=== PATIENT | male | born 1950 | race African-American/Black ===

== ENCOUNTER → 2019-08-11 | Day surgery (SDC) | payer OTHER ==
[2019-08-03 14:20] LABS: BASOPHILS % 0.2 % (0.0-1.0); EOSINOPHILS # (AUTO) 0.1 (0.0-0.4); EOSINOPHILS % 2.8 % (0.0-6.0); HEMATOCRIT 46.6 % (38.2-49.6); HEMOGLOBIN 15.2 g/dL (14.0-18.0); LYMPHOCYTES # (AUTO) 1.2 (1.0-3.2); LYMPHOCYTES % 24.2 % (18.0-39.1); MEAN CORPUSCULAR HEMOGLOBIN 28.6 pg (28-32); MEAN CORPUSCULAR HGB CONC 32.6 g/dL (31-35); MEAN CORPUSCULAR VOLUME 87.6 fL (81-99); MONOCYTES # (AUTO) 0.3 (0.2-0.8); MONOCYTES % 6.7 % (4.4-11.3); NEUTROPHILS # (AUTO) 3.2 (2.1-6.9); NEUTROPHILS % 65.7 % (38.7-80.0); PLATELET COUNT 156 x10e3/uL (140-360); RED BLOOD COUNT 5.32 x10e6/uL (4.3-5.7); RED CELL DISTRIBUTION WIDTH 15.4 % (11.7-14.4)
--- NOTE | 2019-08-03 15:36 | Diagnostic Imaging Report ---
Chest, 2 views, 08/03/2019. History: Preop, hardware removal. Comparison: None available. Findings: The cardiomediastinal silhouette and pulmonary vasculature are within normal limits. The lungs are clear without evidence of consolidation or pleural effusion. Prominence right epicardial fat-pad is noted. There are no acute osseous or soft tissue abnormalities. Impression: No acute cardiopulmonary abnormality. Signed by: Sukhi Bustamante on 08/03/2019 3:33 PM
[~2019-08-11] MED LIST: ACETAMINOPHEN/CODEINE 300MG - 30MG TAB ONE; AMBIEN10 MG PO; AMLODIPINE PO; BUPIVACAINE HCL 0.5% INJ 30 ML VIAL INJ ONE; CEFAZOLIN SOD 1 GM/NS 50ML 50 ML IV ONE; CELEBREX PO; CIALIS5 MG PO; CRESTOR10 MG PO; EPHEDRINE SULFATE INJ 50 MG/10 ML SYR ONE; FENTANYL CITRATE/PF 100MCG/2 ML INJ ONE; HYZAAR 50-12.51 EACH PO; LIDOCAINE HCL 2% LOCAL INJ 5 ML SDV VIAL INJ ONE; OLMESARTAN PO; PROPOFOL IV EMULSION 10 MG/ML 20 ML VIAL ONE; SEVOFLURANE INHAL SOLN 250 ML PEN BTL ONE
--- OUTSIDE RECORDS SUMMARY | 2019-08-11 05:57 | XMS REPORT ---
Author Author [facility] Address Unknown Phone Unavailable Care Team Providers Care Ux Design Manager Name Role Phone ILENE MADRID Unavailable Unavailable NUNO ZUNIGA Unavailable Unavailable Payers Payer Name Policy Type Policy Number Effective Date Expiration Date Problems This patient has no known problems. Allergies, Adverse Reactions, Alerts Allergy Name Allergy Type Status Severity Reaction(s) Onset Date Inactive Date Treating Clinician Comments No Known Allergies DA Active U 2015-03-20 00:00:00 Medications This patient has no known medications. Encounters Start Date/Time End Date/Time Encounter Type Admission Type Attending [facility] Facility Care Department Encounter ID 2017-04-09 20:00:00 2017-04-09 23:59:00 Outpatient [facility] [id number] Results Test Description Test Time Test Comments Text Results Atomic Results Result Comments CHEST 2 VIEWS 2019 15:32:00 [place] [address] Patient Name: BRYN LOWE MR #: [id number] : 1950 Age/Sex: 69/M Req #: [id number] Adm Physician: Ordered by: ILENE MADRID MD Report #: [id number] Location: OR Room/Bed: Procedure: [id number] DX/CHEST 2 VIEWS Exam Date: 08/03/19 Exam Time: 1431 REPORT STATUS: Signed Chest, 2 views, 2019. History: Preop, hardw are removal. Comparison: None available. Findings: The cardiomediastinal silhouette and pulmonary vasculature are within normal limits. The lungs are clear without evidence of consolidation or pleural effusion. Prominence right epicardial fat-pad is noted. There are no acute osseous or soft tissue abnormalities. Impression: No acute cardiopulmonary abnormality. Signed by: Sukhi Bustamante on 2019 3:33 PM Dictated By: SUKHI BUSTAMANTE MD 153 Transcribed By: ABRAHAM on 08/03/19 1533 COPY TO: ILENE MADRID MD U/S, THYROID 2019-05-22 13:57:00 Reason for Exam:->e04.1 FINAL REPORT TECHNIQUE: Grayscale ultrasound of the thyroid. INDICATION: e04.1. Thyroid nodule COMPARISON: None. FINDINGS: Right thyroid:The right thyroid measures 4 x 1.6 x 2.2 cm.A right mid thyroid mixed cystic and solid hypoechoic nodule measures 1.7 x 1.5 x 1.6 cm with a smooth margin. TI-RADS 3A mixed cystic and solid thyroid nodule in the upper thyroid measures 0.6 x 0.4 x 0.4 cm.No right-sided lymphadenopathy. Left thyroid:The left thyroid measures 3.9 x 1.4 x 1.3 cm.No discrete nodules.No left-sided lymphadenopathy. Isthmus:The isthmus measures 0.3 cm in thickness.No discrete nodules. IMPRESSION: A right thyroid nodule measures 1.7 cm and qualifies as TI-RADS 3. A follow-up ultrasound is recommended in one year to document stability. Signed: Dusty Cosby MDReport Verified Date/Time: 05/22/2019 13:57:14 Reading Location: [address] Radiology Reading Room Abdomen Complete 2019-01-12 10:23:14 Patient: BRYN LOWE Date/Time01/12/2019 10:01 CDTReason for ExamIncontinenceReportUltrasound abdomen completeHISTORY: Nausea, vomiting, diarrhea, abdominal painCOMPARISON: 08/05/2015TECHNIQUE: Real-time sonographic images of the abdomen acquired.FINDINGS: Liver size within normal limits. Hepatic portal triads are preserved. 4.1 cm cyst is seen in the right lobe the liver. Nonshadowing 11 mm hyperechoic lesion is also seen within the dome of the right lobe. Gallbladder is contracted without shadowing stone. Common bile duct measures 4.5 mm. Pancreas obscured by overlying bowel gas. Spleen measures 10.9 cm with suspected 19 mm splenule. Increased cortical echogenicity of the kidneys identified with right kidney measuring 10.1 cm in length the left kidney measuring 13.0 cm. 2.0 cm cyst present within the right kidney. No hydronephrosis. Abdominal aorta and IVC largely obscured by overlying bowel gas. No free fluid.IMPRESSION:1. Increased cortical echogenicity bilateral kidneys suspect for nonspecific medical renal disease.2. Hepatic and renal cysts.3. No shadowing 11 mm hyperechoic lesion dome of the right lobe of the liver. Although nonspecific, small hemangioma is of differential consideration. Final Dictated by: MD Gely, Hallie DT/TM: 01/12/2019 10:19 amSigned by: MD Gely, Nemesio (Electronic Signature): 01/12/2019 10:23 am XR Abdomen Series + Chest 1 View 2019-01-12 08:47:26 Patient: BRYN LOWE Date/Time01/12/2019 08:42 CDTReason for ExamBowel obstructionReportAbdominal series with chest x- rayHISTORY: Diarrhea, emesis, hypertensionCOMPARISON: 08/05/2015TECHNIQUE: PA chest provided along with supine and upright views of the abdomenFINDINGS: Heart size and pulmonary vasculature within normal limits. Basilar crowd ing/atelectasis suspected. No acute pleural abnormality. No free air present underlying the hemidiaphragms. Nonobstructive bowel gas pattern noted. Limited air-fluid levels present in the colon. Psoas margins profiled. Degenerative changes of the spine noted.IMPRESSION:1. No active cardiopulmonary process.2. Nonspecific colonic air-fluid levels. Final Dictated by: MD Gely, Trudyctated DT/TM: 01/12/2019 8:45 amSigned by: MD Gely, Nemesio (Electronic Signature): 01/12/2019 8:47 am - XR CHEST 2 V 2018-12-22 16:44:00 FAX: Armando Cates II [phone] [place]: St: REG Name: BRYN LOWE [facility] : 1950 Age/S: 68/M [address] [place] [address] Unit #: [id number] Loc: [place] [address] Phys: Armando Ctaes II, MD Acct: [id number] Dis Date: Status: REG CLI PHONE #: [phone] Exam Date: 12/22/2018 1630 FAX #: [phone] Reason: J40, BRONCHITIS. EXAMS: CPT CODE: [id number] XR CHEST 2 V [id number] EXAM: CHEST TWO VIEW HISTORY: 68-year-old male with bronchitis COMPARISON: Chest radiograph 11/30/2015 FINDINGS: Minimal sub segmental atelectasis in the left lung base. Lungs otherwise clear. The cardiomediastinal silhouette is normal for projection. No acute osseous abnormality. IMPRESSION: 1. Minimal subsegmental atelectasis in the left lung base. SL: [id number] at 9038 Reported and signed by: Martha Luevano M.D. CC: ARMANDO CATES Technologist: RT Chidi(Shelia) Trnscrd Date/Time/By: 12/22/2018 (1797) : By: [email or web address] Orig Print D/T: S: 12/22/2018 (4151) PAGE 1 Signed Report
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
--- NOTE | 2019-08-11 07:05 | NUR ---
SPIRITUAL CARE - Pre-Surgery Assessment: Pt in bed. Pt's at bedside. Pt reported supportive attention from family and friends. Intervention: I provided pastoral presence, hospitality, and sympathetic listening. I acquainted pt with availability of cooking chef while hospitalized. Outcome: Pt expressed appreciation for visit. No need for follow up indicated at this time. MALORIE Juarezlain Spiritual Care Department O: [phone] Pager: [phone] ([phone] number calling from)
[2019-08-11 09:55] VITALS: BP 137/84
--- NOTE | 2019-08-11 12:28 | Operative Report ---
DATE OF PROCEDURE: 08/11/2019 SURGEON: Donal Lamar MD FORMAL WEAR RENTAL CLERK: Gil Almonte, certified PA. PREOPERATIVE DIAGNOSIS: Mechanical complication, left ankle hardware. POSTOPERATIVE DIAGNOSIS: Mechanical complication, left ankle hardware. PROCEDURE: Hardware removal, left ankle. INDICATIONS: The patient is a 69-year-old gentleman, who is status post an ORIF of his left ankle. The fracture has gone on to heal. The swelling has subsided and now the hardware is bothering him on the lateral aspect of his ankle. The findings and options have been discussed. He would like to proceed with hardware removal. The risks and benefits were explained. He stated he understood and wished to proceed. PROCEDURE IN DETAIL: The patient was brought to the operating room and placed under general anesthetic. His left lower extremity was prepped and draped in a sterile manner. A preoperative time-out was performed. The extremity was exsanguinated and a proximal tourniquet was inflated to 300 mmHg. A portion of the previous lateral incision was utilized. The plate was carefully identified and an electrocauterized was used to remove the soft tissue off the plate. The screws were all carefully removed. The plate was removed. Each drill hole was gently debrided with a curette and a rongeur forceps. The thickened periosteum was closed over the fracture. The skin was closed with subcuticular Vicryl and a running nylon stitch. About 6 mL of 0.5% Marcaine without epinephrine was injected around the incision. He was placed into a sterile bandage, extubated and transported to the recovery room in stable condition. There was no blood loss and all needle and sponge counts were correct. Donal Lamar MD DR/BOGDAN /[id number]
== END | disposition home or self-care (01) ==
LOC: OR 05:48
PROVIDERS: ATTEND Specialist
DX: T84.197A Other mechanical complication of internal fixation device of bone of left lower leg, initial encounter (principal); I10 Essential (primary) hypertension; E78.5 Hyperlipidemia, unspecified; G47.33 Obstructive sleep apnea (adult) (pediatric); N20.0 Calculus of kidney; Y83.8 Other surgical procedures as the cause of abnormal reaction of the patient, or of later complication, without mention of misadventure at the time of the procedure; Z01.810 Encounter for preprocedural cardiovascular examination; Z01.812 Encounter for preprocedural laboratory examination; Z01.818 Encounter for other preprocedural examination; Z68.32 Body mass index [BMI] 32.0-32.9, adult; Z85.46 Personal history of malignant neoplasm of prostate
CPT/HCPCS: 20680; 36415; 71046; 76000; 85025; 93005; J0690; J2001; J2704; J3010

== ENCOUNTER 2020-05-20 22:57 | Observation (INO) | payer OTHER ==
[~2020-05-20] VITALS: Ht 170.2 cm; Wt 95.8 kg
[~2020-05-20 22:57] MED LIST changes: -ACETAMINOPHEN/CODEINE 300MG - 30MG TAB ONE; -BUPIVACAINE HCL 0.5% INJ 30 ML VIAL INJ ONE; -CEFAZOLIN SOD 1 GM/NS 50ML 50 ML IV ONE; -EPHEDRINE SULFATE INJ 50 MG/10 ML SYR ONE; -FENTANYL CITRATE/PF 100MCG/2 ML INJ ONE; -LIDOCAINE HCL 2% LOCAL INJ 5 ML SDV VIAL INJ ONE; -PROPOFOL IV EMULSION 10 MG/ML 20 ML VIAL ONE; -SEVOFLURANE INHAL SOLN 250 ML PEN BTL ONE
[2020-05-20] MEDS ORDERED: ASPIRIN 81 MG CHEW TAB PO ONE (23:15)
[2020-05-20 23:21] LABS: BASOPHILS % 0.5 % (0.0-1.0); EOSINOPHILS # (AUTO) 0.2 (0.0-0.4); EOSINOPHILS % 2.6 % (0.0-6.0); HEMATOCRIT 45.8 % (38.2-49.6); LYMPHOCYTES # (AUTO) 1.4 (1.0-3.2); LYMPHOCYTES % 23.3 % (18.0-39.1); MEAN CORPUSCULAR HEMOGLOBIN 28.1 pg (28-32); MEAN CORPUSCULAR HGB CONC 32.8 g/dL (31-35); MEAN CORPUSCULAR VOLUME 85.8 fL (81-99); MONOCYTES # (AUTO) 0.6 (0.2-0.8); NEUTROPHILS # (AUTO) 3.9 (2.1-6.9); NEUTROPHILS % 64.4 % (38.7-80.0); PLATELET COUNT 179 x10e3/uL (140-360); RED BLOOD COUNT 5.34 x10e6/uL (4.3-5.7); RED CELL DISTRIBUTION WIDTH 14.9 % (11.7-14.4)
[2020-05-20 23:26] LABS: INR 0.86; PROTHROMBIN TIME 12.1 seconds (11.9-14.5)
[2020-05-20 23:27] LABS: PARTIAL THROMBOPLASTIN TIME 23.9 seconds (23.8-35.5)
[2020-05-20 23:36] LABS: ALBUMIN 3.9 g/dL (3.5-5.0); ALBUMIN/GLOBULIN RATIO 1.1 (0.8-2.0); CALCIUM 9.1 mg/dL (8.4-10.2); CREATININE, SERUM 1.51 mg/dL (0.72-1.25)
[2020-05-20 23:42] LABS: CREATINE KINASE MB 1.4 ng/mL (0-5.0)
--- OUTSIDE RECORDS SUMMARY | 2020-05-20 23:59 | XMS REPORT | Clinical Summary ---
Author Author [facility] Address Unknown Phone Unavailable Care Team Providers Care Trade Facilitator Name Role Phone Armando Cates PCP Allergies Not on File Medications Not on file Active Problems Not on file Encounters Care Team Description Date Type Specialty Sky Avilez MD Nontoxic uninodular goiter 05/22/2019 Hospital Radiology Encounter Sky Avilez MD Nontoxic uninodular goiter (Primary Dx) 05/22/2019 Outside Orders Central Scheduling after 05/20/2019 Social History Date Tobacco Use Types Packs/Day Years Used Never Assessed Sex Assigned at Date Recorded Not on file Industry Job Start Date Occupation Not on file Not on file Not on file Travel End Travel History Travel Start No recent travel history available. Last Filed Vital Signs Not on file Plan of Treatment Not on file Procedures Comments Procedure Name Priority Date/Time Associated Diag nosis US THYROID Routine 05/22/2019 Nontoxic uninod ular 12:18 PM CDT goiter after 05/20/2019 Results * US Thyroid (05/22/2019 12:18 PM CDT) Specimen Narrative Performed At FINAL REPORT [facility] TECHNIQUE: Grayscale ultrasound of the thyroid. INDICATION: e04.1. Thyroid nodule COMPARISON: None. FINDINGS: Right thyroid: The right thyroid measures 4 x 1.6 x 2. 2 cm. A right mid thyroid mixed cystic and so lid hypoechoic nodule measures 1.7 x 1.5 x 1.6 cm with a smooth margin . TI-RADS 3 A mixed cystic and solid thyroid nodule in the upper thyroid measures 0.6 x 0.4 x 0.4 cm. No right-sided lymphadenopathy. Left thyroid: The left thyroid measures 3.9 x 1.4 x 1 .3 cm. No discrete nodules. No left-sided lymphadenopathy. Isthmus: The isthmus measures 0.3 cm in thicknes s. No discrete nodules. IMPRESSION: A right thyroid nodule measures 1.7 cm and qualifies as TI-RADS 3. A follow-up ultrasound is recommended in one year to document stability. Signed: Dusty Cosby MD Report Verified Date/Time: 13:57:14 Reading Location: [address] Radiolo gy Reading Room Procedure Note Interface, External Ris In - 05/22/2019 1:59 PM CDT FINAL REPORT TECHNIQUE: Grayscale ultrasound of the thyroid. INDICATION: e04.1. Thyroid nodule COMPARISON: None. FINDINGS: Right thyroid: The right thyroid measures 4 x 1.6 x 2.2 cm. A right mid thyroid mixed cystic and solid hypoechoic nodule measures 1.7 x 1.5 x 1.6 cm with a smooth margin. TI-RADS 3 A mixed cystic and solid thyroid nodule in the upper thyroid measures 0.6 x 0.4 x 0.4 cm. No right-sided lymphadenopathy. Left thyroid: The left thyroid measures 3.9 x 1.4 x 1.3 cm. No discrete nodules. No left-sided lymphadenopathy. Isthmus: The isthmus measures 0.3 cm in thickness. No discrete nodules. IMPRESSION: A right thyroid nodule measures 1.7 cm and qualifies as TI-RADS 3. A follow-up ultrasound is recommended in one year to document stability. Signed: Dusty Cosby MD Report Verified Date/Time: 05/22/2019 13:57:14 Reading Location: [address] Radiology Reading Room Performing Organization Address City/State/Zipcode Ph one Number GE RIS after 05/20/2019 Insurance Payer Benefit Subscriber ID Type Phone Address Plan / Group CP [facility] x[facility] [place] [facility] [id number]
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
--- NOTE | 2020-05-21 00:01 | Emergency Department Note ---
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 Historian: Patient Arrival Mode: Car Section Chief Required: No Onset (how long ago): hour(s) (1) Location: SUBSTERANL Quality: PAIN Radiation: Reports non-radiation, Reports extremity, Reports other (NECK) Severity: moderate Onset quality: sudden Duration (how long): hour(s) (1) Timing of current episode: intermittent Progression: partially resolved Chronicity: new Context: Denies recent illness, Denies recent surgery, Denies trauma/injury Relieving factors: none Exacerbating factors: none Associated symptoms: Reports denies other symptoms Treatments prior to arrival: none Past Medical/Family History Physician Review I have reviewed the patient's past medical and family history. Any updates have been documented here. Past Medical History Recent Fever: No Clinical Suspicion of Infectio: No New/Unexplained Change in Ment: No Past Medical History: Hypertension, GERD, Hyperlipedemia Past Surgical History: T&A Other Surgery: LT WRIST LT ANKLE Social History Smoking Cessation: Never Smoker Alcohol Use: None Any Illegal Drug Use: No Physically hurt or threatened: No Family History Family history of heart diseas: No Other family history HTN Review of Systems Review of Systems Constitutional: Reports no symptoms EENTM: Reports no symptoms Cardiovascular: Reports as per HPI Respiratory: Reports no symptoms Gastrointestinal: Reports no symptoms Genitourinary: Reports no symptoms Musculoskeletal: Reports no symptoms Integumentary: Reports no symptoms Neurological: Reports no symptoms Psychological: Reports no symptoms Endocrine: Reports no symptoms Hematological/Lymphatic: Reports no symptoms Physical Exam Related Data Allergies: Coded Allergies: No Known Allergies (Unverified , 03/21/15) Triage Vital Signs Vital Signs Date Time Temp Pulse Resp B/P (MAP) Pulse Ox O2 Delivery O2 Flow Rate FiO2 05/20/20 22:57 97.9 90 18 145/83 100 Room Air Vital signs reviewed: Yes Physical Exam CONSTITUTIONAL Constitutional: Present well-developed, Present well-nourished; Absent distressed HENT HENT: Present normocephalic, Present atraumatic, Present oropharynx clear/moist, Present nose normal HENT L/R: Present left ext ear normal, Present right ext ear normal EYES Eyes: Reports PERRL, Reports conjunctivae normal NECK Neck: Present ROM normal PULMONARY Pulmonary: Present effort normal, Present breath sounds normal CARDIOVASCULAR Cardiovascular: Present regular rhythm, Present heart sounds normal, Present capillary refill normal, Present normal rate GASTROINTESTINAL Abdominal: Present soft, Present nontender, Present bowel sounds normal GENITOURINARY Genitourinary: Present exam deferred SKIN Skin: Present warm, Present dry MUSCULOSKELETAL Musculoskeletal: Present ROM normal NEUROLOGICAL Neurological: Present alert, Present oriented x 3, Present no gross motor or sensory deficits PSYCHOLOGICAL Psychological: Present mood/affect normal, Present judgement normal Results Laboratory Result Diagram: 05/20/20230805/20/202308 Laboratory Laboratory Tests Test 05/20/20 23:09 White Blood Count 6.10 x10e3/uL (4.8-10.8) Red Blood Count 5.34 x10e6/uL (4.3-5.7) Hemoglobin 15.0 g/dL (14.0-18.0) Hematocrit 45.8 % (38.2-49.6) Mean Corpuscular Volume 85.8 fL (81-99) Mean Corpuscular Hemoglobin 28.1 pg (28-32) Mean Corpuscular Hemoglobin Concent 32.8 g/dL (31-35) Red Cell Distribution Width 14.9 % (11.7-14.4) Platelet Count 179 x10e3/uL (140-360) Neutrophils (%) (Auto) 64.4 % (38.7-80.0) Lymphocytes (%) (Auto) 23.3 % (18.0-39.1) Monocytes (%) (Auto) 9.0 % (4.4-11.3) Eosinophils (%) (Auto) 2.6 % (0.0-6.0) Basophils (%) (Auto) 0.5 % (0.0-1.0) Neutrophils # (Auto) 3.9 (2.1-6.9) Lymphocytes # (Auto) 1.4 (1.0-3.2) Monocytes # (Auto) 0.6 (0.2-0.8) Eosinophils # (Auto) 0.2 (0.0-0.4) Basophils # (Auto) 0.0 (0.0-0.1) Absolute Immature Granulocyte (auto 0.01 x10e3/uL (0-0.1) Prothrombin Time 12.1 seconds (11.9-14.5) Prothromb Time International Ratio 0.86 Activated Partial Thromboplast Time 23.9 seconds (23.8-35.5) Sodium Level 141 mmol/L (136-145) Potassium Level 4.0 mmol/L (3.5-5.1) Chloride Level 109 mmol/L (98-107) Carbon Dioxide Level 19 mmol/L (22-29) Anion Gap 17.0 mmol/L (8-16) Blood Urea Nitrogen 19 mg/dL (7-26) Creatinine 1.51 mg/dL (0.72-1.25) Estimat Glomerular Filtration Rate 56 ML/MIN (60-) BUN/Creatinine Ratio 13 (6-25) Glucose Level 141 mg/dL (74-118) Calcium Level 9.1 mg/dL (8.4-10.2) Total Bilirubin 0.8 mg/dL (0.2-1.2) Aspartate Amino Transf (AST/SGOT) 16 IU/L (5-34) Alanine Aminotransferase (ALT/SGPT) 19 IU/L (0-55) Alkaline Phosphatase 62 IU/L (40-150) Creatine Kinase 263 IU/L (30-200) Creatine Kinase MB 1.40 ng/mL (0-5.0) Troponin I 0.009 ng/mL (0-0.300) B-Type Natriuretic Peptide < 10.0 pg/mL (0-100) Total Protein 7.4 g/dL (6.5-8.1) Albumin 3.9 g/dL (3.5-5.0) Globulin 3.5 g/dL (2.3-3.5) Albumin/Globulin Ratio 1.1 (0.8-2.0) Lipase 105 U/L (8-78) Laboratory Tests Test 05/20/20 23:09 White Blood Count 6.10 x10e3/uL (4.8-10.8) Red Blood Count 5.34 x10e6/uL (4.3-5.7) Hemoglobin 15.0 g/dL (14.0-18.0) Hematocrit 45.8 % (38.2-49.6) Mean Corpuscular Volume 85.8 fL (81-99) Mean Corpuscular Hemoglobin 28.1 pg (28-32) Mean Corpuscular Hemoglobin Concent 32.8 g/dL (31-35) Red Cell Distribution Width 14.9 % (11.7-14.4) Platelet Count 179 x10e3/uL (140-360) Neutrophils (%) (Auto) 64.4 % (38.7-80.0) Lymphocytes (%) (Auto) 23.3 % (18.0-39.1) Monocytes (%) (Auto) 9.0 % (4.4-11.3) Eosinophils (%) (Auto) 2.6 % (0.0-6.0) Basophils (%) (Auto) 0.5 % (0.0-1.0) Neutrophils # (Auto) 3.9 (2.1-6.9) Lymphocytes # (Auto) 1.4 (1.0-3.2) Monocytes # (Auto) 0.6 (0.2-0.8) Eosinophils # (Auto) 0.2 (0.0-0.4) Basophils # (Auto) 0.0 (0.0-0.1) Absolute Immature Granulocyte (auto 0.01 x10e3/uL (0-0.1) Prothrombin Time 12.1 seconds (11.9-14.5) Prothromb Time International Ratio 0.86 Activated Partial Thromboplast Time 23.9 seconds (23.8-35.5) Sodium Level 141 mmol/L (136-145) Potassium Level 4.0 mmol/L (3.5-5.1) Chloride Level 109 mmol/L (98-107) Carbon Dioxide Level 19 mmol/L (22-29) Anion Gap 17.0 mmol/L (8-16) Blood Urea Nitrogen 19 mg/dL (7-26) Creatinine 1.51 mg/dL (0.72-1.25) Estimat Glomerular Filtration Rate 56 ML/MIN (60-) BUN/Creatinine Ratio 13 (6-25) Glucose Level 141 mg/dL (74-118) Calcium Level 9.1 mg/dL (8.4-10.2) Total Bilirubin 0.8 mg/dL (0.2-1.2) Aspartate Amino Transf (AST/SGOT) 16 IU/L (5-34) Alanine Aminotransferase (ALT/SGPT) 19 IU/L (0-55) Alkaline Phosphatase 62 IU/L (40-150) Creatine Kinase 263 IU/L (30-200) Creatine Kinase MB 1.40 ng/mL (0-5.0) Troponin I 0.009 ng/mL (0-0.300) B-Type Natriuretic Peptide < 10.0 pg/mL (0-100) Total Protein 7.4 g/dL (6.5-8.1) Albumin 3.9 g/dL (3.5-5.0) Globulin 3.5 g/dL (2.3-3.5) Albumin/Globulin Ratio 1.1 (0.8-2.0) Lipase 105 U/L (8-78) Lab results reviewed: Yes Imaging Imaging results reviewed: Yes Impressions EXAMINATION: CHEST SINGLE (PORTABLE) INDICATION: CHEST PAIN COMPARISON: Radiograph dated 08/03/2019. FINDINGS: TUBES and LINES: None. LUNGS: Shallow lung volumes. Strandy right basilar atelectasis. PLEURA: No pleural effusion or pneumothorax. HEART AND MEDIASTINUM: The cardiomediastinal silhouette is unremarkable. BONES AND SOFT TISSUES: No acute osseous lesion. Soft tissues are unremarkable. UPPER ABDOMEN: No free air under the diaphragm. IMPRESSION: Shallow lung volumes mildly limits examination. Strandy bibasilar atelectasis. No acute process identified. Signed by: Snow Wyman MD on 05/21/2020 12:08 AM Dictated By: SNOW WYMAN MD Transcribed By: ABRAHAM on 05/21/207 COPY TO: GEMMA BELTRAN MD~ Procedures 12 Lead ECG Interpretation ECG Interpretation : ECG: ECG 1 Section Chief: Interpreted by ED physician Date: May 20, 2020 Time: 23:00 Rhythm: sinus rhythm Rate: normal BPM: 88 QRS axis: normal ST segments normal: Yes T wave inversion: III, V1, V3, V4 Other findings: LVH Clinical Impression: abnormal ECG Assessment & Plan Medical Decision Making MDM Patient with intermittent chest pain for the past hour with the longest episode lasting 20 minutes. Maximum nonattention currently 3 out of 10 this is still improving CBC, CMP, cardiac enzymes, EKG, chest x-ray, BNP ordered to eval for myocardial infarction, pneumonia, pulmonary edema, congestive heart failure, a little light abnormality, renal insufficiency. 81 mg aspirin by mouth ordered Assessment & Plan Final Impression: (1) Chest pain (2) Elevated lipase Depart Disposition: ADMITTED Last Vital Signs Date Time Temp Pulse Resp B/P (MAP) Pulse Ox O2 Delivery O2 Flow Rate FiO2 05/20/20 22:57 97.9 90 18 145/83 100 Room Air Home Meds Reported Medications Tadalafil (CIALIS) 5 Mg Tablet, 5 MG PO DAILY 08/03/19 Rosuvastatin Calcium (CRESTOR) 10 Mg Tab, 20 MG PO DAILY THERAPEUTICALLY SUBSTITUTED WITH SIMVASTATIN 40MG 08/03/19 [Amlodipine/Olmesar] No Conflict Check, MG PO DAILY 08/03/19 Zolpidem Tartrate (AMBIEN) 10 Mg Tablet, 10 MG PO PRN 03/21/15 Medications in the ED Aspirin 81 mg PRN ONCE PO Last administered on 05/20/20at 23:39; Admin Dose 81 MG; Start 05/20/20 at 23:15; Stop 05/20/20 at 23:25; Status DC GEMMA BELTRAN MD May 21, 2020 00:01
--- NOTE | 2020-05-21 00:11 | Diagnostic Imaging Report ---
EXAMINATION: CHEST SINGLE (PORTABLE) INDICATION: CHEST PAIN COMPARISON: Radiograph dated 08/03/2019. FINDINGS: TUBES and LINES: None. LUNGS: Shallow lung volumes. Strandy right basilar atelectasis. PLEURA: No pleural effusion or pneumothorax. HEART AND MEDIASTINUM: The cardiomediastinal silhouette is unremarkable. BONES AND SOFT TISSUES: No acute osseous lesion. Soft tissues are unremarkable. UPPER ABDOMEN: No free air under the diaphragm. IMPRESSION: Shallow lung volumes mildly limits examination. Strandy bibasilar atelectasis. No acute process identified. Signed by: Gera Borges MD on 05/21/2020 12:08 AM
[2020-05-21] MEDS ORDERED: SODIUM CHLORIDE FLUSH 10 ML SYR INJ PRN (00:15)
[2020-05-21] MEDS ORDERED: FAMOTIDINE 20 MG/2 ML VIAL IV SCH (00:15)
[2020-05-21] MEDS ORDERED: ONDANSETRON HCL INJ 2MG/ML 2ML 2 MG/ML VIAL IV PRN (00:15)
[2020-05-21] MEDS ORDERED: MORPHINE SULFATE 2 MG/ML SYR 1ML IV PRN (00:15)
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
--- OUTSIDE RECORDS SUMMARY | 2020-05-21 00:18 | XMS REPORT | Clinical Summary ---
Author Author [facility] Address Unknown Phone Unavailable Care Team Providers Care Room Service Associate Name Role Phone Armando Cates PCP Allergies Not on File Medications Not on file Active Problems Not on file Encounters Care Team Description Date Type Specialty Sky Avilez MD Nontoxic uninodular goiter 05/22/2019 Hospital Radiology Encounter Sky Avilez MD Nontoxic uninodular goiter (Primary Dx) 05/22/2019 Outside Orders Central Scheduling after 05/21/2019 Social History Date Tobacco Use Types Packs/Day [...] uninod ular 12:18 PM CDT goiter after 05/21/2019 Results * US Thyroid (05/22/2019 12:18 PM CDT) Specimen Narrative Performed At FINAL REPORT [facility] TECHNIQUE: Grayscale ultrasound of the thyroid. INDICATION: [...] MD Report Verified Date/Time: 13:57:14 Reading Location: [address] Radiolo gy Reading Room Procedure Note [...] Report Verified Date/Time: 05/22/2019 13:57:14 Reading Location: [address] Radiology Reading Room Performing Organization Address City/State/Zipcode Ph one Number GE RIS after 05/21/2019 Insurance Payer Benefit Subscriber ID Type Phone Address Plan / Group CP [facility] x[facility] [place] [facility] [id number]
[2020-05-21 02:12] VITALS: BP 122/81
[2020-05-21 02:40] VITALS: BP 122/81
--- NOTE | 2020-05-21 02:45 | NUR ---
Patient received from ER. AAO x 4. Patient had no complaints of chest pain. Respirations even and non-labored. Telemetry box in place; recording SR @ 88. Safety measures implemented. Patient oriented to room, call light, visiting policy and plan of care. Patient instructed to call for assistance when needed. Call light within reach.
[2020-05-21] MEDS ORDERED: AZOR 10-20 MG1 EACH (02:58)
[2020-05-21] MEDS ORDERED: METFORMIN HCL500 MG PO (02:58)
[2020-05-21] MEDS ORDERED: CELEBREX100 MG PO (02:58)
[2020-05-21 04:58] VITALS: BP 136/87
--- NOTE | 2020-05-21 06:37 | NUR ---
RECEIVED BEDSIDE SHIFT REPORT FROM OFF GOING NURSE. PATIENT IS RESTING IN BED, DENIES PAIN OR DISCOMFORT. NO ACUTE DISTRESS NOTED. CALL LIGHT WITHIN REACH. BED IN THE LOWEST POSITION.
[2020-05-21 07:22] LABS: BASOPHILS % 0.6 % (0.0-1.0); EOSINOPHILS # (AUTO) 0.2 (0.0-0.4); EOSINOPHILS % 2.8 % (0.0-6.0); HEMOGLOBIN 14.4 g/dL (14.0-18.0); LYMPHOCYTES # (AUTO) 1.5 (1.0-3.2); LYMPHOCYTES % 27.4 % (18.0-39.1); MEAN CORPUSCULAR HEMOGLOBIN 28.3 pg (28-32); MEAN CORPUSCULAR HGB CONC 32.7 g/dL (31-35); MEAN CORPUSCULAR VOLUME 86.4 fL (81-99); MONOCYTES # (AUTO) 0.5 (0.2-0.8); MONOCYTES % 9.6 % (4.4-11.3); NEUTROPHILS # (AUTO) 3.1 (2.1-6.9); NEUTROPHILS % 59.2 % (38.7-80.0); PLATELET COUNT 158 x10e3/uL (140-360); RED BLOOD COUNT 5.09 x10e6/uL (4.3-5.7)
[2020-05-21 07:42] LABS: ALANINE AMINOTRANSFERASE 17 IU/L (0-55); ALBUMIN 3.6 g/dL (3.5-5.0); ALBUMIN/GLOBULIN RATIO 1.1 (0.8-2.0); ALKALINE PHOSPHATASE 55 IU/L (40-150); ANION GAP 14.1 mmol/L (8-16); BLOOD UREA NITROGEN 16 mg/dL (7-26); BUN/CREATININE RATIO 12 (6-25); CARBON DIOXIDE 22 mmol/L (22-29); CHLORIDE 110 mmol/L (98-107); CREATININE, SERUM 1.39 mg/dL (0.72-1.25); EST GLOMERULAR FILTRATION RATE > 60 ML/MIN (60-); GLUCOSE 105 mg/dL (74-118); POTASSIUM 4.1 mmol/L (3.5-5.1); SODIUM 142 mmol/L (136-145)
[2020-05-21 07:45] LABS: CREATINE KINASE 207 IU/L (30-200)
[2020-05-21 08:00] VITALS: BP 121/78
[2020-05-21 08:06] VITALS: BP 121/78
[2020-05-21] MEDS ORDERED: ASPIRIN 81 MG ENTERIC COATED PO SCH (09:00)
[2020-05-21 12:00] VITALS: BP 125/95
--- NOTE | 2020-05-21 12:11 | NUR ---
RECEIVED DISCHARGE ORDER FROM DR. SCOTT, PATIENT IS IN STABLE CONDITION. IV LINE TO RIGHT ANTECUBITAL DISCONTINUED @ 1200 WITH TIP INTACT, PRESSURE DRESSING APPLIED TO SITE. DISCHARGE TEACHING PROVIDED TO PATIENT, HE VERBALIZED UNDERSTANDING. NO NEW PRESCRIPTIONS ORDERED. TRANSITION OF CARE FOLDER WITH DC PAPERWORK AND PERSONAL ITEMS ON HAND. PATIENT REFUSED WHEELCHAIR, STAFF ACCOMPANIED PATIENT TO PRIVATE AUTO.
--- NOTE | 2020-05-21 12:59 | Discharge Summary ---
CHIEF COMPLAINT: Atypical chest pain. HISTORY OF PRESENT ILLNESS: The patient is 69 years male, ate some food and developed some epigastric pain. The pain, nonradiating pain. The patient was concerned, therefore he came to the emergency room for evaluation. In the emergency room, the patient stated that he was having pain after eating hot dog and thought it was reflux. He feeling of nausea and sweating and then subsequently epigastric chest pains initiated. The patient was worried, so he came to emergency room. In the emergency room, his cardiac enzyme was negative. EKG otherwise unremarkable. The EKG normal sinus rhythm. The echocardiogram showed ejection fraction of 60% to 65%. The workup that the patient had previously with his skein spooler with a stress test approximately one year ago that was negative. The patient does have a skein spooler that he go to. The patient requests to be discharge and I agreed. His lab work otherwise unremarkable. Cardiac enzymes negative. Renal function is stable. The patient denies any chest pain. No shortness of breath. No nausea or vomiting. Discharge patient home today. Resume home medication. Activity as tolerated. Follow up with his skein spooler in a week or two for possible repeat EKG and further workup if needed. The patient is otherwise stable. Discharge home today. Medication reconciliation is done. FINAL DIAGNOSES: Atypical chest pain. Nausea and vomiting, resolved. Possible food induced reflux and chest pain. MD ENEIDA Perry/FANYL /[id number]
== END 2020-05-21 12:43 | disposition home or self-care (01) ==
LOC: ER 23:32 → ERHOLD 05-21 00:15 → MED/SURG2 05-21 02:07
PROVIDERS: ADMIT Internal Medicine; ATTEND Internal Medicine
DX: R07.89 Other chest pain (principal); Z11.59 Encounter for screening for other viral diseases; E11.9 Type 2 diabetes mellitus without complications; E78.5 Hyperlipidemia, unspecified; G47.00 Insomnia, unspecified
CPT/HCPCS: 36415 ×2; 71045; 80053 ×2; 82550 ×2; 82553 ×2; 82948; 83690 ×2; 83880; 84484 ×2; 85025 ×2; 85610; 85730; 93005; 93306; 99284; G0378; U0002